=== PATIENT | male | born 1985 | race Two or more races ===

== ENCOUNTER 2020-11-07 23:17 | Emergency (ER) | payer OTHER ==
[~2020-11-07] VITALS: Ht 172.7 cm; Wt 73.0 kg
[2020-11-07] MEDS ORDERED: WELLBUTRIN SR100 MG (23:25)
[2020-11-07] MEDS ORDERED: LEXAPRO5 MG (23:25)
[2020-11-07] MEDS ORDERED: CLONAZEPAM0.5 M1 (23:25)
[2020-11-08] MEDS ORDERED: CIPRO HC OTIC S10 ML OT ×2 (02:11→02:12)
[2020-11-08] MEDS ORDERED: BACTRIM 400-801 EACH PO (02:14)
== END 2020-11-08 02:31 | disposition home or self-care (01) ==
LOC: ER 23:17
DX: S00.03XA Contusion of scalp, initial encounter (principal); S09.21XA Traumatic rupture of right ear drum, initial encounter; M54.2 Cervicalgia; W06.XXXA Fall from bed, initial encounter; Y93.89 Activity, other specified; Y92.013 Bedroom of single-family (private) house as the place of occurrence of the external cause; Y99.8 Other external cause status

== ENCOUNTER 2021-04-06 11:21 | Emergency (ER) | payer OTHER ==
[~2021-04-06] VITALS: Ht 172.7 cm; Wt 73.5 kg
== END 2021-04-06 14:24 | disposition home or self-care (01) ==
LOC: ER 11:21
DX: S05.12XA Contusion of eyeball and orbital tissues, left eye, initial encounter (principal); W22.8XXA Striking against or struck by other objects, initial encounter; Y93.89 Activity, other specified; Y92.098 Other place in other non-institutional residence as the place of occurrence of the external cause; Y99.8 Other external cause status

== ENCOUNTER → 2021-04-06 | Emergency (ER) | payer OTHER ==
[~2021-04-06] MED LIST: BACTRIM 400-801 EACH PO; CIPRO HC OTIC S10 ML OT; CLONAZEPAM0.5 M1; LEXAPRO5 MG; WELLBUTRIN SR100 MG
== END | disposition left against medical advice (07) ==
LOC: ER 08:59
DX: Z53.20 Procedure and treatment not carried out because of patient's decision for unspecified reasons (principal)

== ENCOUNTER 2023-09-07 11:54 | Emergency (ER) | payer OTHER ==
[~2023-09-07] VITALS: Ht 170.2 cm; Wt 78.9 kg
== END 2023-09-07 14:19 | disposition home or self-care (01) ==
LOC: ER 11:54
DX: Z53.21 Procedure and treatment not carried out due to patient leaving prior to being seen by health care provider (principal)

== ENCOUNTER 2024-06-08 21:13 | Emergency (ER) | payer OTHER ==
[~2024-06-08] VITALS: Ht 172.7 cm; Wt 77.1 kg
[2024-06-08] MEDS ORDERED: WELLBUTRIN XL300 MG PO (21:23)
[2024-06-08] MEDS ORDERED: LEXAPRO5 MG PO (21:23)
[2024-06-08] MEDS ORDERED: CEFAZOLIN SODIUM 1,000 MG VIAL ONE (21:42)
[2024-06-08] MEDS ORDERED: TETANUS DIPHTHERIA TOX. ADSOR 5 ML VIAL IM ONE (21:42)
[2024-06-08] MEDS ORDERED: CEFAZOLIN SODIUM 1,000 MG VIAL IM ONE (21:45)
[2024-06-08] MEDS ORDERED: TETANUS & DIPHTHERIA TOX,ADULT 0.5 ML VIAL IM ONE (21:45)
[2024-06-08] MEDS ORDERED: MEPERIDINE HCL/PF 50 MG/ML VIAL IM ONE (21:45)
[2024-06-08] MEDS ORDERED: BACITRACIN-NEOMYCIN-POLYMYXIN 0.9 GM PACKET TOP ONE (23:43)
== END 2024-06-09 00:09 | disposition home or self-care (01) ==
LOC: ER 21:13
DX: S62.666A Nondisplaced fracture of distal phalanx of right little finger, initial encounter for closed fracture (principal); S61.316A Laceration without foreign body of right little finger with damage to nail, initial encounter; X58.XXXA Exposure to other specified factors, initial encounter; Y93.89 Activity, other specified; Y92.89 Other specified places as the place of occurrence of the external cause; Y99.9 Unspecified external cause status

== ENCOUNTER 2024-06-17 06:52 | Day surgery (SDC) | payer OTHER ==
[2024-06-13 11:20] LABS: PH,URINE 6.5 (5.0-8.0); URINE APPEARANCE Clear; URINE BILIRRUBIN Negative (NEGATIVE); URINE BLOOD Negative; URINE COLOR Yellow; URINE GLUCOSE Negative (NEGATIVE); URINE KETONE Negative (NEGATIVE); URINE LEUKOCYTE Negative; URINE NITRATE Negative; URINE PROTEIN Negative (NEGATIVE); URINE UROBILINOGEN 0.2 E.U./dl
[2024-06-13 11:34] LABS: HEMATOCRIT 50.7 % (39.0-48.0); HEMOGLOBIN 17.2 g/dL (13-16.00); MEAN CELL VOLUME 94.1 fL (80.0-100.00); PLATELET COUNT 205 K/uL (150-450); RED BLOOD COUNT 5.38 M/uL (4.00-6.00); RED CELL DISTRIBUTION WIDTH 14.5 % (11.5-14.5)
[2024-06-13 11:36] LABS: URINE BACTERIA 1.2 uL (0.0-1933); URINE EPITHELIAL CELLS 0.1 uL (0.0-38.8); URINE WBC 0.1 uL (0.0-23.2)
[2024-06-13 12:12] LABS: INR 0.98; PARTIAL THROMBOPLASTIN TIME 29.5 SECONDS (22.0-34.0); PROTHROMBIN TIME 10.3 SECONDS (9.0-11.5)
[2024-06-13 12:18] LABS: ALBUMIN 3.9 gm/dL (3.4-5.0); BILIRUBIN TOTAL 0.56 mg/dL (0.3-1.2); CALCIUM 9.2 mg/dL (8.5-10.1); CREATININE SERUM 0.82 mg/dL (0.70-1.30); GFR 104.06; GLOBULINA 3.2 G/DL (2.4-3.5); POTASSIUM 4.46 mEq/L (3.5-5.1); TOTAL PROTEIN 7.1 gm/dL (6.4-8.2)
[~2024-06-17 06:52] MED LIST changes: +AMOX1TAB5 PO; +LEXAPRO5 MG PO; +WELLBUTRIN XL300 MG PO
[2024-06-17] MEDS ORDERED: CEFAZOLIN SODIUM 1,000 MG VIAL ONE (14:23)
== END 2024-06-17 18:20 | disposition home or self-care (01) ==
LOC: CIR.AMB 06:52
PROVIDERS: ATTEND Orthopaedic Surgery Hand Surgery
DX: S67.196A Crushing injury of right little finger, initial encounter (principal); F41.8 Other specified anxiety disorders